=== PATIENT | male | born 1985 | race Caucasian/White ===

== ENCOUNTER 2017-05-10 08:53 | Emergency (ER) | payer OTHER, MEDICAID ==
[2017-05-10 09:25] VITALS: BP 153/85
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
[2017-05-10] MEDS ORDERED: MOTRIN PO ONE (11:52)
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
== END 2017-05-10 12:33 | disposition home or self-care (01) ==
LOC: ED 08:53
DX: S46.911A Strain of unspecified muscle, fascia and tendon at shoulder and upper arm level, right arm, initial encounter (principal); S40.812A Abrasion of left upper arm, initial encounter; F84.0 Autistic disorder; V49.59XA Passenger injured in collision with other motor vehicles in traffic accident, initial encounter; Y93.89 Activity, other specified; Y99.8 Other external cause status; Y92.488 Other paved roadways as the place of occurrence of the external cause
CPT/HCPCS: 99283

== ENCOUNTER 2019-06-20 11:21 | Emergency (ER) | payer MEDICAID, OTHER ==
[2019-06-20 11:36] VITALS: BP 117/73
--- NOTE | 2019-06-20 12:56 | Emergency Department Report ---
HPI - General Chief Complaint: Multiple Trauma Time Seen by Provider: 06/20/19 12:15 - HPI HPI: 33-year-old male presents to the emergency department, with his mother, with a complaint of right knee and avalos pain that has been going on since he had a fall earlier today. The patient has history of autism and is nonverbal. His mother does not speak any Armenian but Karlie was at bedside to translate. The mother witnessed the patient having a fall after he tried to get up off of a blanket. He fell onto his knees and has been nonweightbearing since the fall. He did not hit his head or have any loss of consciousness. He was not given anything for his symptoms prior to arrival today. ED Past Medical Hx - Past Medical History Previous Medical History?: Yes Hx Hypertension: No Hx CVA: No Hx Heart Attack/AMI: No Hx Congestive Heart Failure: No Hx Diabetes: No Hx Deep Vein Thrombosis: No Hx Pulmonary Embolism: No Hx GERD: No Hx Liver Disease: No Hx Renal Disease: No Hx of Cancer: No Hx Sickle Cell Disease: No Hx Arthritis: No Hx Headaches / Migraines: No Hx Seizures: No Hx Kidney Stones: No Hx Psychiatric Treatment: No Hx Asthma: No Hx COPD: No Hx Tuberculosis: No Hx Dementia: No Hx HIV: No Additional medical history: autistim - Surgical History Past Surgical History?: No Hx Coronary Stent: No Hx Open Heart Surgery: No Hx Pacemaker: No Hx Internal Defibrillator: No Hx Cholecystectomy: No Hx Appendectomy: No Hx Breast Surgery: No - Social History Smoking Status: Never Smoker Substance Use Type: None - Medications Home Medications: Home Medications Medication Instructions Recorded Confirmed Last Taken Type Ibuprofen [Motrin 600 MG tab] 600 mg PO Q8H PRN #20 tablet 06/20/19 Unknown Rx ED Review of Systems ROS: Stated complaint: KNEE PAIN Other details as noted in HPI Comment: All other systems reviewed and negative Musculoskeletal: arthralgia. denies: back pain, joint swelling Neurological: denies: headache, weakness, numbness, paresthesias Physical Exam - Physical Exam Vital Signs: Vital Signs 06/20/19 11:35 Temperature 97.9 F Pulse Rate 107 H Respiratory 20 Rate Blood Pressure 117/73 O2 Sat by Pulse 96 Oximetry Physical Exam: GENERAL: The patient is well-developed well-nourished. HENT: Normocephalic. Atraumatic. Patient has moist mucous membranes. EYES: Extraocular motions are intact. NECK: Supple. Trachea is midline. CHEST/LUNGS: Clear to auscultation. There is no respiratory distress noted. HEART/CARDIOVASCULAR: Regular. There is no tachycardia. There is no murmur. ABDOMEN:There is no abdominal distention. SKIN: Skin is warm and dry. NEURO: Patient responds to painful stimuli and some commands. Nonverbal at baseline. MUSCULOSKELETAL: There is some tenderness to palpation to the right knee but no obvious deformity. Negative anterior and posterior drawer test. No laxity with valgus or varus stress of the affected right knee. ED Course Vital Signs 06/20/19 11:35 Temperature 97.9 F Pulse Rate 107 H Respiratory 20 Rate Blood Pressure 117/73 O2 Sat by Pulse 96 Oximetry ED Medical Decision Making - Radiology Data Radiology results: image reviewed interpreted by me: X-ray of the right knee and tib-fib does not show any fracture, dislocation or any acute process. - Medical Decision Making Patient presents with some right knee pain and some right avalos pain after a fall just prior to presentation. X-rays were done of these areas that do not show any fracture, dislocation or any acute process. The patient was able to get into the emergency department with his mother using crutches for weightbearing. He has been placed in a knee immobilizer and will continue to use the crutches as needed. He has been given a referral for an orthopedist. He will return to ER with any worsening of symptoms or any acute distress. - Differential Diagnosis fracture, dislocation, sprain, strain Critical Care Time: No Critical care attestation.: If time is entered above; I have spent that time in minutes in the direct care of this critically ill patient, excluding procedure time. ED Disposition Clinical Impression: Right leg pain Right knee pain Qualifiers: Chronicity: acute Qualified Code(s): M25.561 - Pain in right knee Fall Qualifiers: Encounter type: initial encounter Qualified Code(s): W19.XXXA - Unspecified fall, initial encounter Disposition: TO HOME OR SELFCARE Is pt being admited?: No Condition: Stable Instructions: Knee Pain (ED), Arthralgia (ED) Additional Instructions: Please follow-up with your primary care physician in the next few days. I am giving him a referral for a local orthopedist, Dr. Negrete, to follow-up regarding the knee and leg pain. Return to the emergency Department with any worsening of your symptoms or any acute distress. Prescriptions: Ibuprofen [Motrin 600 MG tab] 600 mg PO Q8H PRN #20 tablet PRN Reason: Pain Referrals: RASHAD NEGRETE MD [Staff Physician] - 2-3 Days Time of Disposition: 14:45
--- NOTE | 2019-06-20 14:05 | XRay Report ---
RIGHT KNEE, 3 VIEWS INDICATION: right knee pain, fall. COMPARISON: None. IMPRESSION: Normal bone mineralization. No acute osseous abnormality is detected. No significant DJD . A moderate joint effusion is identified on the lateral image. If internal derangement is suspected , MRI could be obtained. RIGHT TIBIA AND FIBULA, 2 VIEWS INDICATION: right knee pain, fall. COMPARISON: None. IMPRESSION: No acute osseous or soft tissue abnormality. No significant DJD. Signer Name: Garrison Holm Jr, MD Signed: 06/20/2019 2:01 PM Workstation Name: [id number]
== END 2019-06-20 15:00 | disposition home or self-care (01) ==
LOC: ED 11:21
DX: M25.561 Pain in right knee (principal); F84.0 Autistic disorder; Z88.5 Allergy status to narcotic agent; W01.198A Fall on same level from slipping, tripping and stumbling with subsequent striking against other object, initial encounter; Y93.89 Activity, other specified; Y92.89 Other specified places as the place of occurrence of the external cause; Y99.8 Other external cause status